=== PATIENT | male | born 1985 | race Caucasian/White ===

== ENCOUNTER 2019-07-31 12:47 | Emergency (ER) | payer SELFPAY ==
--- NOTE | 2019-07-31 13:48 | ER Document Report ---
ED Medical Screen (RME) - General Chief Complaint: Toothache Stated Complaint: FACIAL SWELLING, TOOTH PAIN Time Seen by Provider: 07/31/19 12:53 Notes: Patient is a 34-year-old male who presents to the emergency department with a chief complaint of tooth pain to tooth #17, 18, and 19. He has had on and off tooth pain for the past few months. He reports he had a fever yesterday. This morning he woke up and he noticed that his jaw was swollen. He states that he attempted to drink Pedialyte to help with his tooth pain. Exam: Dental caries noted to tooth #17, 18, 19 with a piece of tooth missing from tooth #19. Significant swelling noted to left mandible area. Patent airway. I have greeted and performed a rapid initial assessment of this patient. A comprehensive ED assessment and evaluation of the patient, analysis of test resu lts and completion of medical decision making process will be conducted by an additional ED providers. - Related Data Allergies/Adverse Reactions: No Known Allergies Allergy (Verified 07/31/19 12:48) Physical Exam - Vital signs Vitals: Temp Pulse Resp BP Pulse Ox 97.7 F 67 19 141/94 H 97 07/31/19 12:51 07/31/19 12:51 07/31/19 12:51 07/31/19 12:51 07/31/19 12:51 Course - Vital Signs Vital signs: Temp Pulse Resp BP Pulse Ox 97.7 F 67 19 141/94 H 97 07/31/19 12:51 07/31/19 12:51 07/31/19 12:51 07/31/19 12:51 07/31/19 12:51
--- NOTE | 2019-07-31 14:04 | ER Document Report ---
ED Medical Screen (RME) - General Chief Complaint: Toothache Stated Complaint: FACIAL SWELLING, TOOTH PAIN Time Seen by Provider: 07/31/19 12:53 - Related Data Allergies/Adverse Reactions: No Known Allergies Allergy (Verified 07/31/19 12:48) Physical Exam - Vital signs Vitals: Temp Pulse Resp BP Pulse Ox 97.7 F 67 19 141/94 H 97 07/31/19 12:51 07/31/19 12:51 07/31/19 12:51 07/31/19 12:51 07/31/19 12:51 Course - Vital Signs Vital signs: Temp Pulse Resp BP Pulse Ox 97.7 F 67 19 141/94 H 97 07/31/19 12:51 07/31/19 12:51 07/31/19 12:51 07/31/19 12:51 07/31/19 12:51
[2019-07-31] MEDS ORDERED: DEXAMETHASONE SOD PHOS INJ 10 MG/1 ML VIAL IV ONE (14:28)
[2019-07-31] MEDS ORDERED: CLINDAMYCIN 600 MG/D5W RTU 600 MG/50 ML RTUPB IV ONE (14:28)
[2019-07-31] MEDS ORDERED: NORMAL SALINE 1000 ML 1,000 ML IV ONE (14:28)
[2019-07-31 14:41] LABS: ABSOLUTE EOSINOPHILS # (AUTO) 0.1 10^3/uL (0.0-0.6); ABSOLUTE LYMPHOCYTES (AUTO) 1.4 10^3/uL (0.5-4.7); ABSOLUTE MONOCYTES (AUTO) 0.6 10^3/uL (0.1-1.4); ABSOLUTE NEUT (AUTO) 10.7 10^3/uL (1.7-8.2); BASOPHILS % (AUTO) 0.3 % (0-2); EOSINOPHILS % (AUTO) 0.7 % (0-6); HEMATOCRIT 41.2 % (37.9-51.0); LYMPHOCYTES % (AUTO) 10.8 % (13-45); MEAN CORPUSCULAR HEMOGLOBIN 30.3 pg (27.0-33.4); MEAN CORPUSCULAR VOLUME 89 fl (80-97); MONOCYTES % (AUTO) 4.5 % (3-13); PLATELET COUNT 268 10^3/uL (150-450); RED BLOOD COUNT 4.64 10^6/uL (4.35-5.55); RED CELL DISTRIBUTION WIDTH 13.4 % (11.5-14.0); SEGMENTED NEUTROPHILS % (AUTO) 83.7 % (42-78); TOTAL CELLS COUNTED % (AUTO) 100 %; WHITE BLOOD COUNT 12.8 10^3/uL (4.0-10.5)
[2019-07-31 14:56] LABS: ANION GAP 8 (5-19); BLOOD UREA NITROGEN 12 mg/dL (7-20); CALCIUM 9.1 mg/dL (8.4-10.2); CARBON DIOXIDE 28 mmol/L (22-30); CHLORIDE 102 mmol/L (98-107); GLUCOSE 74 mg/dL (75-110); POTASSIUM 4.1 mmol/L (3.6-5.0)
--- NOTE | 2019-07-31 15:47 | RADIOLOGY REPORT (SQ) ---
EXAM DESCRIPTION: CT SOFT TISSUE NECK WITH COMPLETED DATE/TIME: 07/31/2019 3:32 pm REASON FOR STUDY: abscess COMPARISON: None. TECHNIQUE: Post IV contrasted scanning from skull base through lung apices with review of bone, soft tissue and lung windows. Reconstructed coronal and sagittal MPR images reviewed. All images stored on PACS. All CT scanners at this facility use dose modulation, iterative reconstruction, and/or weight based d osing when appropriate to reduce radiation dose to as low as reasonably achievable (ALARA). [facility]: Dose Right [facility]: CareDose [facility]: Dose Right [facility]: Teradose 4D [facility]: TradeBeam CONTRAST TYPE AND DOSE: contrast/concentration: Isovue 350.00 mg/ml; Total Contrast Delivered: 75.0 ml; Total Saline Delivered: 55.0 ml RENAL FUNCTION: None required. The patient is less than 50 years old. RADIATION DOSE: CT Rad equipment meets quality standard of care and radiation dose reduction techniq ues were employed. CTDIvol: 14.8 mGy. DLP: 498 mGy-cm. . LIMITATIONS: None. FINDINGS: SKULL BASE: Intact. MAJOR SALIVARY GLANDS: No solid or cystic masses. No inflammatory changes. LYMPHADENOPATHY: There is bilateral cervical adenopathy most likely reactive. MUCOSAL MASSES OR ASYMMETRY: No mucosal masses or asymmetry. LARYNX/CORDS: No abnormal findings. VASCULAR STRUCTURES: The major vessels are patent. LUNG APICES: Clear. BONES: Intact. THYROID: Normal size. No masses. PARANASAL SINUSES: Pansinusitis with a retention cyst or polyp in the left maxillary sinus. The mast oid air cells are clear. OTHER: Diffuse left-sided subcutaneous edema. There is thickening of the muscles of mastication. De finite drainable abscess is not identified at this time but will need close follow-up. IMPRESSION: 1. Left-sided facial cellulitis. No drainable abscess at this time as described. 2. Cervical adenopathy most likely reactive. 3. Pansinusitis with a retention cyst or polyp in the right maxillary sinus. TECHNICAL DOCUMENTATION: JOB ID: [id number] Quality ID # [id number]: Final reports with documentation of one or more dose reduction techniques (e.g., Au tomated exposure control, adjustment of the mA and/or kV according to patient size, use of iterative reconstruction technique) 2010 [employer]- All Rights Reserved Reading location - IP/workstation name: [email or web address]
[2019-07-31] MEDS ORDERED: KETOROLAC TROMETHAMINE INJ/PF 30 MG/1 ML SDV IV ONE (15:53)
--- NOTE | 2019-07-31 16:16 | ER Document Report ---
ED Oral Problem - General Chief Complaint: Toothache Stated Complaint: FACIAL SWELLING, TOOTH PAIN Time Seen by Provider: 07/31/19 12:53 - HPI Notes: 34-year-old male to the emergency department with complaints of left-sided facia l swelling that began this morning. He states that he had lower toothache off and on for the past several weeks but it got worse last night. He states that he had a little bit of drooling due to the swelling on this side. He denies any difficulty breathing, shortness of breath, difficulty swallowing, fevers, chills. He is a smoker. He does not have a dentist. - Related Data Allergies/Adverse Reactions: No Known Allergies Allergy (Verified 07/31/19 12:48) Past Medical History - General Information source: Patient - Social History Smoking Status: Current Some Day Smoker Frequency of alcohol use: Rare Drug Abuse: None Family History: Reviewed & Not Pertinent Patient has suicidal ideation: No Patient has homicidal ideation: No Psychiatric Medical History: Reports: Hx Depression Past Surgical History: Reports: Hx Orthopedic Surgery, Hx Tonsillectomy Review of Systems - Review of Systems Constitutional: denies: Chills, Fever EENT: See HPI, Mouth swelling, Dental problem. denies: Throat pain, Difficulty swallowing Cardiovascular: denies: Chest pain, Palpitations, Heart racing, Orthopnea, Dyspnea, Syncope, Dizziness, Lightheaded Respiratory: denies: Cough, Short of breath Gastrointestinal: denies: Abdominal pain, Diarrhea, Nausea, Vomiting Genitourinary: denies: Burning, Dysuria, Discharge, Frequency, Flank pain, Hematuria, Incontinence Skin: No symptoms reported Neurological/Psychological: No symptoms reported -: Yes All other systems reviewed and negative Physical Exam - Vital signs Vitals: Temp Pulse Resp BP Pulse Ox 97.7 F 67 19 141/94 H 97 07/31/19 12:51 07/31/19 12:51 07/31/19 12:51 07/31/19 12:51 07/31/19 12:51 Interpretation: Normal - General General appearance: Appears well, Alert In distress: None - HEENT Head: Normocephalic, Other - There is noted left-sided facial swelling to the lower jaw. Eyes: Normal Conjunctiva: Normal Pupils: PERRL Ears: Normal External canal: Normal Tympanic membrane: Normal Sinus: Normal Nasal: Normal Mouth/Lips: Caries - There are several dental caries throughout with noted several broken teeth. Tooth #19 is broken posteriorly and tender to palpation along the outside of the gum along 1819 and 20 teeth there is induration and tenderness to palpation, this is where he predominantly has most of his swelling. There is no trismus. There is no criselda angina, Dental fracture Mucous membranes: Normal Neck: Normal, Supple - Respiratory Respiratory status: No respiratory distress Chest status: Nontender Breath sounds: Normal Chest palpation: Normal - Cardiovascular Rhythm: Regular Heart sounds: Normal auscultation Murmur: No - Neurological Neuro grossly intact: Yes Cognition: Normal Orientation: AAOx4 [place] Coma Scale Eye Opening: Spontaneous [place] Coma Scale Verbal: Oriented Shahab Coma Scale Motor: Obeys Commands Shahab Coma Scale Total: 15 Speech: Normal Cranial nerves: Normal Cerebellar coordination: Normal Motor strength normal: LUE, RUE, LLE, RLE Additional motor exam normals: Equal import manager. No: Pronator drift Sensory: Normal - Psychological Associated symptoms: Normal affect, Normal mood - Skin Skin Temperature: Warm Skin Moisture: Dry Skin Color: Normal Course - Re-evaluation Re-evalutation: 07/31/19 16:18 Laboratory 07/31/19 07/31/19 14:20 14:20 WBC 12.8 H RBC 4.64 Hgb 14.0 Hct 41.2 MCV 89 MCH 30.3 MCHC 34.0 RDW 13.4 Plt Count 268 Lymph % (Auto) 10.8 L [place] % (Auto) 4.5 Eos % (Auto) 0.7 Baso % (Auto) 0.3 Absolute Neuts (auto) 10.7 H Absolute Lymphs (auto) 1.4 Absolute Monos (auto) 0.6 Absolute Eos (auto) 0.1 Absolute Basos (auto) 0.0 Seg Neutrophils % 83.7 H Sodium 138.0 Potassium 4.1 Chloride 102 Carbon Dioxide 28 Anion Gap 8 BUN 12 Creatinine 0.96 Est GFR ( Amer) > 60 Est GFR (MDRD) Non-Af > 60 Glucose 74 L Calcium 9.[address] 07/31/19 00:00 IMPRESSION: 1. Left-sided facial cellulitis. No drainable abscess at this time as described. 2. Cervical adenopathy most likely reactive. 3. Pansinusitis with a retention cyst or polyp in the right maxillary sinus. Impression: Dental caries, facial cellulitis, toothache. Noted no abscess with pocket for drainage and CT. Noted labs. Patient has been doing well. Will send home with antibiotics, pain medicine, steroids. Was encouraged to follow- up with dentist. Have urged patient to return immediately if any worsening swelling, inability to open mouth, difficulty swallowing, difficulty breathing, fevers, intractable nausea and vomiting. He agrees with the plan will discharge home. - Vital Signs Vital signs: Temp Pulse Resp BP Pulse Ox 97.7 F 67 19 141/94 H 97 07/31/19 12:51 07/31/19 12:51 07/31/19 12:51 07/31/19 12:51 07/31/19 12:51 - Laboratory Result Diagrams: 07/31/19 14:20 07/31/19 14:20 Laboratory results interpreted by me: 07/31/19 07/31/19 14:20 14:20 WBC 12.8 H Lymph % (Auto) 10.8 L Absolute Neuts (auto) 10.7 H Seg Neutrophils % 83.7 H Glucose 74 L - Diagnostic Test Radiology reviewed: Image reviewed, Reports reviewed Discharge - Discharge Clinical Impression: Facial cellulitis, Dental caries, Toothache Condition: Stable Disposition: HOME, SELF-CARE Instructions: Toothache ([facility]), Cellulitis ([facility]) Additional Instructions: Push fluids. Take antibiotics as prescribed, COmplete antibiotics. Return if worsening swelling, inability to open mouth, shortness of breath, difficulty breathing, intractable vomiting, or any other concerns. Follow up with dentist. Prescriptions: Clindamycin HCl 300 mg PO TID #30 capsule Methylprednisolone [Medrol Dosepack (4 mg/Tab) 21 Tab/Dosepak] 4 mg PO ASDIR PRN #21 tab.ds.pk PRN Reason: Hydrocodone/Acetaminophen [[place] 5-325 mg Tablet] 1 tab PO Q6H #8 tablet Referrals: DEBBIE OLIVO DDS [NO LOCAL MD] - Follow up in 1 week (for dentistry follow up)
[2019-07-31 17:06] VITALS: BP 130/76
== END 2019-07-31 16:59 | disposition home or self-care (01) ==
LOC: ER 12:47
DX: L03.211 Cellulitis of face (principal); K02.9 Dental caries, unspecified; K08.89 Other specified disorders of teeth and supporting structures; R22.0 Localized swelling, mass and lump, head; F17.200 Nicotine dependence, unspecified, uncomplicated
CPT/HCPCS: 36415; 87040; 85025; 87077; 80048; 70491; J1885; J7030; J1100